=== PATIENT | female | born 1960 | race African-American/Black ===

== ENCOUNTER 2017-01-30 09:48 | Emergency (ER) | payer OTHER, SELFPAY ==
[2017-01-30] MEDS ORDERED: Ketorolac Tromethamine 30 MG/ML VIAL ONE (09:58)
--- NOTE | 2017-01-30 18:51 | RAD ---
PORTABLE CHEST: 01/30/17 No prior films were available for comparison. This portable film at 0958 shows a normal sized heart. The mediastinum shows no widening or shift. The trachea is midline. The lungs seem fully inflated a nd clear. No infiltrate or effusion was present. No fractures were appreciated. IMPRESSION: No acute thoracic findings. POS: HOME
== END 2017-01-30 10:23 | disposition home or self-care (01) ==
LOC: BURERS 09:48
DX: M25.512 Pain in left shoulder (principal); V89.2XXA Person injured in unspecified motor-vehicle accident, traffic, initial encounter
CPT/HCPCS: 71010; 96372; J1885

== ENCOUNTER 2017-02-11 17:15 | Emergency (ER) | payer OTHER, SELFPAY | END 2017-02-11 18:14 | disposition home or self-care (01) | LOC: BURERS 17:15 | DX: S29.012A Strain of muscle and tendon of back wall of thorax, initial encounter (principal); I10 Essential (primary) hypertension; R20.2 Paresthesia of skin; V89.2XXA Person injured in unspecified motor-vehicle accident, traffic, initial encounter | CPT/HCPCS: 93005 ==

== ENCOUNTER 2020-04-18 15:51 | Emergency (ER) | payer OTHER ==
[2020-04-18] MEDS ORDERED: predniSONE 20 MG TAB ONE (16:58)
== END 2020-04-18 17:00 | disposition home or self-care (01) ==
LOC: BURERS 15:51
DX: L50.0 Allergic urticaria (principal)
CPT/HCPCS: 99283; J7512

== ENCOUNTER 2021-07-06 14:12 | Emergency (ER) | payer OTHER, SELFPAY ==
[2021-07-06 15:31] LABS: Hemoglobin 14.2 g/dL (12.0-16.0); Mean Corpuscular HGB CONC 32.4 g/dL (32.0-36.0); Mean Corpuscular Hemoglobin 27.5 pg (27.0-31.0); Mean Platelet Volume 7.2 fL (7.4-10.4); Platelet Count 353 thou/uL (130-400); RBC Distribution Width 14.1 % (11.5-14.5); Red Blood Cell (RBC) Count 5.18 mill/uL (4.20-5.40); White Blood Cell (WBC) Count 13.1 thou/uL (4.8-10.8)
[2021-07-06] MEDS ORDERED: Ondansetron PF 4 MG/2 ML Vial ONE ×2 (15:35→20:03)
[2021-07-06] MEDS ORDERED: Morphine 4 MG/ML VIAL ONE ×2 (15:35→20:03)
[2021-07-06 15:36] LABS: ALT (SGPT) 18 U/L (8-55); AST (SGOT) 11 U/L (5-34); Albumin 4.4 g/dL (3.5-5.0); Alkaline Phosphatase 99 U/L (40-110); Anion Gap 20 mmol/L (10-20); BUN (Urea Nitrogen) 8 mg/dL (9.8-20.1); Bilirubin, Total 0.3 mg/dL (0.2-1.2); Calc. Creatinine Clearance 0 mL/min (70-130); Calcium 10.3 mg/dL (7.8-10.44); Carbon Dioxide 23 mmol/L (22-29); Chloride 104 mmol/L (98-107); Globulin 3.9 g/dL (2.4-3.5); Glucose 148 mg/dL (70-105); Potassium 3.2 mmol/L (3.5-5.1); Protein, Total 8.3 g/dL (6.0-8.3); Sodium 144 mmol/L (136-145)
[2021-07-06 15:44] LABS: Band 12 % (5-11); Eosinophils 1 % (0-10); Lymphocytes 13 % (21-51); MDiff Complete? YES; Monocytes 7 % (0-10); Neutrophil 65 % (42-75); Reactive Lymphocytes 1 % (0-10)
[2021-07-06 15:51] LABS: Bilirubin Negative (Negative); Blood, Urine Trace (Negative); Clarity Cloudy (Clear); Glucose, Urine (Dipstick) Negative (Negative); Ketone, Urine Negative (Negative); Leukocyte Negative (Negative); Nitrite Positive (Negative); Protein, Urine (Dipstick) 30 mg/dL (Neg-Trace); Specific Gravity, Urine 1.015 (1.005-1.030); Urobilinogen 0.2 mg/dL (Less than 2); pH, Urine 5.5 (5.0-9.0)
[2021-07-06 16:02] LABS: Bacteria/HPF 3+ HPF (None Seen); RBC/HPF 0-3 HPF (0-3); Squamous Epithelial 0-3 HPF (0-3)
[2021-07-06 16:22] LABS: Lipase 8 U/L (8-78)
[2021-07-06] MEDS ORDERED: Metoclopramide HCl 10 MG/2 ML VIAL ONE (16:57)
[2021-07-06] MEDS ORDERED: Mag-Al Plus 1200 MG/1200 MG/120 MG/30 ML UDCUP ONE (17:15)
[2021-07-06] MEDS ORDERED: Pantoprazole 40 MG VIAL ONE (17:15)
[2021-07-06] MEDS ORDERED: Lidocaine Viscous Sol 2% 15 ml UD Cup ONE (17:15)
[2021-07-06] MEDS ORDERED: Dicyclomine 20 MG TAB ONE (17:43)
== END 2021-07-06 20:26 | disposition home or self-care (01) ==
LOC: BURERS 14:12
DX: R10.9 Unspecified abdominal pain (principal); R11.2 Nausea with vomiting, unspecified; R19.7 Diarrhea, unspecified; K57.92 Diverticulitis of intestine, part unspecified, without perforation or abscess without bleeding; Z85.3 Personal history of malignant neoplasm of breast
CPT/HCPCS: 74177; 80053; 81003; 81015; 83605; 83690; 84484; 85025; 93005; 96374; 96375; 96376; C9113; J2270; J2405; J2765

== ENCOUNTER 2021-10-22 20:37 | Inpatient (IN) | payer BC ==
[2021-10-22 21:37] VITALS: BMI 31.1
[2021-10-22] MEDS: Acetaminophen 325 MG TAB PO PRN (21:40)
[2021-10-22] MEDS ORDERED: tiZANidine HCl 4 MG TAB PO PRN (22:16)
[2021-10-22] MEDS ORDERED: HYDROcodone/Acetaminophen 5/325 mg Tablet PO PRN (22:59)
[2021-10-23] MEDS: Vancomycin 25 MG/ML Oral SOLN PO SCH ×4 (05:05→17:24)
[2021-10-23] MEDS ORDERED: tiZANidine HCl 4 MG TAB PO PRN (07:17)
[2021-10-23] MEDS ORDERED: Floranex 1 GM Packet PO SCH (09:00)
[2021-10-23] MEDS ORDERED: BULGARICUS PO SCH (09:00)
[2021-10-23] MEDS ORDERED: ACIDOPHILUS PO SCH (09:00)
[2021-10-23] MEDS ORDERED: Rosuvastatin 10 MG TAB PO SCH (09:00)
[2021-10-23] MEDS: Floranex 1 GM Packet PO SCH ×2 (09:10→21:46)
[2021-10-23] MEDS: Rosuvastatin 10 MG TAB PO SCH (09:10)
[2021-10-23] MEDS: HYDROcodone/Acetaminophen 5/325 mg Tablet PO PRN ×2 (10:31→21:45)
[2021-10-24] MEDS: Vancomycin 25 MG/ML Oral SOLN PO SCH ×4 (00:12→17:40)
[2021-10-24] MEDS: Floranex 1 GM Packet PO SCH ×2 (09:17→12:13)
[2021-10-24] MEDS: Rosuvastatin 10 MG TAB PO SCH (09:17)
[2021-10-24] MEDS: HYDROcodone/Acetaminophen 5/325 mg Tablet PO PRN ×2 (09:33→22:56)
[2021-10-24] MEDS: Acetaminophen 325 MG TAB PO PRN (17:43)
[2021-10-24] MEDS: Saccharomyces boulardii 250 MG CAP PO SCH (20:40)
[2021-10-25] MEDS: Vancomycin 25 MG/ML Oral SOLN PO SCH ×3 (00:11→10:27)
[2021-10-25] MEDS: HYDROcodone/Acetaminophen 5/325 mg Tablet PO PRN (05:26)
[2021-10-25 06:30] VITALS: BP 158/92; TEMP 98.9
[2021-10-25] MEDS: Saccharomyces boulardii 250 MG CAP PO SCH (09:42)
[2021-10-25] MEDS: Rosuvastatin 10 MG TAB PO SCH (09:42)
[2021-10-26] MEDS ORDERED: FLU VACC QS2021-22(6MOS UP)/PF 60 MCG/0.5 ML SYRINGE IM ONE (09:00)
== END 2021-10-25 11:00 | disposition home health service (06) | DRG 948 ==
LOC: BURMED 20:37
PROVIDERS: ADMIT Family Medicine; ATTEND Family Medicine
DX: R53.81 Other malaise (principal); A04.72 Enterocolitis due to Clostridium difficile, not specified as recurrent; E87.8 Other disorders of electrolyte and fluid balance, not elsewhere classified; R79.89 Other specified abnormal findings of blood chemistry

== ENCOUNTER 2022-03-10 01:08 | Emergency (ER) | payer BC ==
[2022-03-10] MEDS ORDERED: Metoclopramide HCl 10 MG/2 ML VIAL ONE (01:58)
[2022-03-10 02:23] LABS: #Basophils 0.1 thou/uL (0.0-0.2); #Eosinphils 0.3 thou/uL (0.0-0.7); #Lymphocytes 2.4 thou/uL (1.20-3.40); #Monocytes 0.4 thou/uL (0.11-0.59); #Neutrophils 8.6 thou/uL (1.40-6.50); %Basophils 1.1 % (0.0-1.0); %Eosinophils 2.7 % (0.0-10.0); %Lymphocytes 20.4 % (21.0-51.0); %Monocytes 3.5 % (0.0-10.0); %Neutrophils 72.3 % (42.0-75.0); Hemoglobin 13.6 g/dL (12.0-16.0); Mean Corpuscular HGB CONC 32.7 g/dL (32.0-36.0); Mean Corpuscular Hemoglobin 27.5 pg (27.0-31.0); Mean Corpuscular Volume 84.1 fL (78.0-98.0); Mean Platelet Volume 7.4 fL (7.4-10.4); Platelet Count 341 thou/uL (130-400); RBC Distribution Width 14.5 % (11.5-14.5); Red Blood Cell (RBC) Count 4.93 mill/uL (4.20-5.40); White Blood Cell (WBC) Count 11.8 thou/uL (4.8-10.8)
[2022-03-10 02:40] LABS: ALT (SGPT) 21 U/L (8-55); AST (SGOT) 11 U/L (5-34); Albumin 4.5 g/dL (3.5-5.0); Alkaline Phosphatase 96 U/L (40-110); Anion Gap 18 mmol/L (10-20); BUN (Urea Nitrogen) 10 mg/dL (9.8-20.1); Bilirubin, Total 0.7 mg/dL (0.2-1.2); Calc. Creatinine Clearance 0 mL/min (70-130); Calcium 9.8 mg/dL (7.8-10.44); Carbon Dioxide 22 mmol/L (22-29); Chloride 108 mmol/L (98-107); Globulin 3.9 g/dL (2.4-3.5); Glucose 134 mg/dL (70-105); Lipase 18 U/L (8-78); Potassium 3.2 mmol/L (3.5-5.1); Protein, Total 8.4 g/dL (6.0-8.3); Sodium 145 mmol/L (136-145)
== END 2022-03-10 03:15 | disposition left against medical advice (07) ==
LOC: BURERS 01:08
DX: R19.7 Diarrhea, unspecified (principal); R51.9 Headache, unspecified; R11.10 Vomiting, unspecified; Z79.899 Other long term (current) drug therapy
CPT/HCPCS: 36415; 80053; 83605; 83690; 83880; 84484; 85025; 93005; J2765

== ENCOUNTER 2024-04-22 10:19 | Emergency (ER) | payer BC ==
[2024-04-22] MEDS ORDERED: Losartan 25 MG TAB ONE (10:47)
[2024-04-22 11:41] LABS: Band 2 % (5-11); Eosinophils 1 % (0-10); Hematocrit 40.3 % (36.0-47.0); Hemoglobin 12.7 g/dL (12.0-16.0); Lymphocytes 23 % (21-51); MDiff Complete? YES; Mean Corpuscular HGB CONC 31.4 g/dL (32.0-36.0); Mean Corpuscular Hemoglobin 25.9 pg (27.0-31.0); Mean Corpuscular Volume 82.6 fl (78.0-98.0); Metamyelocyte 1 % (0-0); Monocytes 5 % (0-10); Neutrophil 68 % (42-75); Platelet Count 427 10x3/uL (130-400); RBC Distribution Width 14.7 % (11.5-14.5); Red Blood Cell (RBC) Count 4.88 mill/uL (4.20-5.40); White Blood Cell (WBC) Count 11.1 10x3/uL (4.8-10.8)
[2024-04-22 11:42] LABS: ALT (SGPT) 18 U/L (8-55); AST (SGOT) 12 U/L (5-34); Albumin 3.6 g/dL (3.4-4.8); Alkaline Phosphatase 96 U/L (40-110); Anion Gap 19 mmol/L (10-20); BUN (Urea Nitrogen) 6 mg/dL (9.8-20.1); Bilirubin, Total 0.5 mg/dL (0.2-1.2); Calc. Creatinine Clearance 0 mL/min (70-130); Calcium 9.8 mg/dL (7.8-10.44); Carbon Dioxide 25 mmol/L (23-31); Chloride 104 mmol/L (98-107); Estimated GFR 79; Globulin 3.8 g/dL (2.4-3.5); Glucose 146 mg/dL (80-115); Potassium 3.2 mmol/L (3.5-5.1); Protein, Total 7.4 g/dL (5.8-8.1); Sodium 145 mmol/L (136-145)
[2024-04-22 11:43] LABS: Troponin I 0.014 ng/mL (< 0.028)
[2024-04-22] MEDS ORDERED: Morphine 4 MG/ML VIAL ONE (13:31)
[2024-04-22] MEDS ORDERED: Ondansetron PF 4 MG/2 ML Vial ONE (13:35)
== END 2024-04-22 14:08 | disposition home or self-care (01) ==
LOC: BURERS 10:19
DX: Z48.815 Encounter for surgical aftercare following surgery on the digestive system (principal); I10 Essential (primary) hypertension
CPT/HCPCS: 36415; 71275; 80053; 83605; 84484; 85025; 85379; 93005; 96374; 96375; J2270; J2405

== ENCOUNTER 2024-11-19 13:13 | Emergency (ER) | payer BC, OTHER ==
[2024-11-19] MEDS ORDERED: Ondansetron PF 4 MG/2 ML Vial ONE ×2 (14:09→21:08)
[2024-11-19 14:17] LABS: #Basophils 0.3 thou/uL (0.0-0.2); #Lymphocytes 3.7 thou/uL (1.20-3.40); #Monocytes 0.5 thou/uL (0.11-0.59); #Neutrophils 12.2 thou/uL (1.40-6.50); %Basophils 1.7 % (0.0-1.0); %Eosinophils 0.3 % (0.0-10.0); %Lymphocytes 22.1 % (21.0-51.0); %Monocytes 2.8 % (0.0-10.0); %Neutrophils 73.1 % (42.0-75.0); Hematocrit 41.7 % (36.0-47.0); Hemoglobin 13.5 g/dL (12.0-16.0); Mean Corpuscular HGB CONC 32.5 g/dL (32.0-36.0); Mean Corpuscular Hemoglobin 25.9 pg (27.0-31.0); Mean Corpuscular Volume 79.9 fl (78.0-98.0); Platelet Count 444 10x3/uL (130-400); RBC Distribution Width 13.1 % (11.5-14.5); Red Blood Cell (RBC) Count 5.22 mill/uL (4.20-5.40); White Blood Cell (WBC) Count 16.7 10x3/uL (4.8-10.8)
[2024-11-19 14:36] LABS: Troponin I 0.027 ng/mL (< 0.028)
[2024-11-19 15:08] LABS: ALT (SGPT) 11 U/L (Less than 34); AST (SGOT) 13 U/L (11-34); Alkaline Phosphatase 86 U/L (40-110); Anion Gap 20 mmol/L (10-20); BUN (Urea Nitrogen) 11 mg/dL (9.8-20.1); Bilirubin, Total 0.3 mg/dL (0.3-1.2); Calc. Creatinine Clearance 0 mL/min (70-130); Calcium 9.8 mg/dL (7.8-10.44); Carbon Dioxide 14 mmol/L (23-31); Chloride 108 mmol/L (98-107); Estimated GFR 96; Globulin 3.8 g/dL (2.4-3.5); Glucose 207 mg/dL (80-115); Potassium 3.1 mmol/L (3.5-5.1); Protein, Total 7.8 g/dL (5.8-8.1); Sodium 139 mmol/L (136-145)
[2024-11-19] MEDS ORDERED: Labetalol HCl 100 MG/20 ML VIAL ONE (15:15)
[2024-11-19 15:30] LABS: Bilirubin Negative (Negative); Blood, Urine Negative (Negative); Clarity Clear (Clear); Glucose, Urine (Dipstick) 100 mg/dL (Negative); Ketone, Urine 40 mg/dL (Negative); Leukocyte Negative (Negative); Nitrite Negative (Negative); Protein, Urine (Dipstick) 30 mg/dL (Neg-Trace); Specific Gravity, Urine 1.015 (1.005-1.030); Urobilinogen 0.2 mg/dL (Less than 2)
[2024-11-19 15:51] LABS: Bacteria/HPF Rare-Few HPF (None Seen); CAUTI Indications for Culture Dysuria,urgency,freq; RBC/HPF None Seen HPF (0-3); Squamous Epithelial 0-3 HPF (0-3); WBC/HPF None Seen HPF (0-3)
[2024-11-19 15:52] LABS: Urine Culture Reflex No No
[2024-11-19] MEDS ORDERED: Dicyclomine 20 MG TAB ONE (16:25)
[2024-11-19] MEDS ORDERED: Potassium Chloride 20 MEQ TAB ONE (16:56)
[2024-11-19] MEDS ORDERED: Nitroglycerin 2% Ointment 1 INCH/1 GM Packet ONE (18:23)
[2024-11-19] MEDS ORDERED: hydrALAZINE 20 MG/ML VIAL ONE (18:23)
[2024-11-19] MEDS ORDERED: Ondansetron ODT 4 MG TAB ONE (19:19)
[2024-11-19] MEDS ORDERED: Promethazine HCl 25 MG/ML VIAL ONE ×2 (19:57→19:58)
[2024-11-19] MEDS ORDERED: Lidocaine Viscous Sol 2% 15 ml UD Cup ONE (19:57)
[2024-11-19] MEDS ORDERED: Mag-Al 1200 mg/1200 mg/30 ML UDCUP ONE (19:57)
[2024-11-19] MEDS ORDERED: fentaNYL 50 mcg/mL 1 mL Vial ONE (21:08)
== END 2024-11-19 23:34 | disposition short-term general hospital (02) ==
LOC: BURERS 13:13
DX: K52.9 Noninfective gastroenteritis and colitis, unspecified (principal); I10 Essential (primary) hypertension; Z85.3 Personal history of malignant neoplasm of breast; Z90.49 Acquired absence of other specified parts of digestive tract
CPT/HCPCS: 71045; 71250; 74176; 80053; 81001; 83880; 84484; 85025; 87400; 87426; 93005; 94760; 96361; 96372; 96374; 96375; 96376; J0360; J2405; J2550; J3010; Q0162

== ENCOUNTER 2025-07-05 08:16 | Emergency (ER) | payer BC ==
[2025-07-05] MEDS ORDERED: Ondansetron PF 4 MG/2 ML Vial ONE (09:02)
[2025-07-05 09:20] LABS: Hematocrit 41.3 % (36.0-47.0); Hemoglobin 13.9 g/dL (12.0-16.0); MDiff Complete? YES; Mean Corpuscular Hemoglobin 26.0 pg (27.0-31.0); Mean Corpuscular Volume 77.4 fl (78.0-98.0); Platelet Count 311 10x3/uL (130-400); Red Blood Cell (RBC) Count 5.34 mill/uL (4.20-5.40); White Blood Cell (WBC) Count 11.0 10x3/uL (4.8-10.8)
[2025-07-05 09:35] LABS: ALT (SGPT) 7 U/L (Less than 34); AST (SGOT) 14 U/L (11-34); Albumin 4.2 g/dL (3.1-4.5); Alkaline Phosphatase 99 U/L (40-110); Anion Gap 20 mmol/L (10-20); BUN (Urea Nitrogen) 12 mg/dL (9.8-20.1); Bilirubin, Total 0.6 mg/dL (0.3-1.2); CK (CPK) 37 U/L (29-168); Calc. Creatinine Clearance 0 mL/min (70-130); Calcium 10.0 mg/dL (7.8-10.44); Carbon Dioxide 20 mmol/L (23-31); Chloride 106 mmol/L (98-107); Globulin 4.0 g/dL (2.4-3.5); Glucose 125 mg/dL (80-115); Lipase 19 U/L (8-78); Magnesium 1.6 mg/dL (1.6-2.6); Potassium 3.2 mmol/L (3.5-5.1); Sodium 143 mmol/L (136-145); Troponin I Less than 0.010 ng/mL (< 0.028)
[2025-07-05 11:55] LABS: Glucose, Urine (Dipstick) Negative (Negative); Leukocyte Negative (Negative); Protein, Urine (Dipstick) 100 mg/dL (Neg-Trace); Specific Gravity, Urine 1.015 (1.005-1.030)
[2025-07-05] MEDS ORDERED: niCARdipine 25 MG/10 ML SDV ONE (11:55)
[2025-07-05 12:04] LABS: Bacteria/HPF Rare-Few HPF (None Seen); CAUTI Indications for Culture Pelvic or flank pain; RBC/HPF 0-3 HPF (0-3); WBC/HPF 0-3 HPF (0-3)
[2025-07-05 12:05] LABS: Cocaine Metabolite Screen Negative (Negative); THC/Cannabinoid Screen Negative (Negative); Tricyclic Screen Negative (Negative); Urine Culture Reflex No No
== END 2025-07-05 15:36 | disposition short-term general hospital (02) ==
LOC: BURERS 08:16
DX: I16.0 Hypertensive urgency (principal); R10.9 Unspecified abdominal pain; I10 Essential (primary) hypertension; R11.2 Nausea with vomiting, unspecified
CPT/HCPCS: 36415; 36556; 70450; 71250; 74176; 80053; 80306; 81001; 82550; 83690; 83735; 83880; 84484; 85025; 85379; 93005; 96361; 96365; 96375; 96376